=== PATIENT | female | born 1985 | race African-American/Black ===

== ENCOUNTER 2021-10-20 11:53 | Emergency (ER) | payer OTHER, SELFPAY ==
[2021-10-20 12:10] VITALS: BP 143/99; PULSE 82; RESP 16; TEMP 36.2; O2SAT 100
--- NOTE | 2021-10-20 12:33 | ED.BACK ---
HPI - Back Pain/Injury General Chief Complaint: Back Pain/Injury Stated Complaint: lower back pain Time Seen by Provider: 10/20/21 12:33 Source: patient Mode of arrival: ambulatory Limitations: no limitations History of Present Illness HPI Narrative: Nadia Monroy is a 36 yo female with no PMH 1 month who comes to [facility] with complaints of left lower back pain that is positional she says she was cleaning up at her dog yesterday and started feeling pain when she reached over, she said it hurts for the set down likely that toilet, and hurts when she walks. Is having no problems controlling her bowels or bladder. Discussed the pros and cons of having an x-ray for this kind of one-time injury and we are going to defer x-ray at this moment Related Data Allergies Allergy/AdvReac Type Severity Reaction Status Date / Time No Known Allergies Allergy Unverified 09/08/13 14:56 Review of Systems Review of Systems: CONSTITUTIONAL: Denies fever, chills, sweats. EYES: Denies visual changes, redness, discharge. ENT: Denies rhinorrhea, congestion, sore throat, otalgia. CARDIOVASCULAR: Denies chest pain, palpitations, edema. RESPIRATORY: Denies dyspnea, wheezing, cough GASTROINTESTINAL: Denies abdominal pain, nausea, vomiting, diarrhea. GENITOURINARY: Denies dysuria, hematuria, abnormal discharge SKIN: Denies rash or itching. NEUROLOGIC: Denies numbness, or focal weakness. PSYCHIATRIC: Denies anxiety or depression. Lower left-sided back pain that radiates into the bilateral buttock on the left PMFSH Past Medical History Medical History No acute medical problems Social History Social History (Updated 10/20/21 @ 12:40 by Jordana Severino CNP) Smoking status: Never smoker Alcohol intake: current Comments At time of signature, I agree with nursing past medical, surgical, social and family history. There is no relevant family history pertinent to the presenting complaint. Blood pressure elevated today at visit because of pain Exam Narrative: GENERAL: This is a well-nourished, well-developed patient, in moderate distress. HEAD: normocephalic, atraumatic. EYES: Sclera clear/white. Vision is grossly intact. EARS: External ears normal. Hearing grossly intact. NOSE: External nose normal without nasal discharge, nares without redness, no rhinorrhea. THROAT: Mucous membranes moist, NECK: Neck supple, CARDIOVASCULAR: Regular rate and rhythm without murmurs, gallops, or rubs. RESPIRATORY: Clear to auscultation. Breath sounds equal bilaterally. No wheezes, rales, or rhonchi. GASTROINTESTINAL: Abdomen soft, non-tender, SKIN: warm, intact with no suspicious lesions or rash, good texture and turgor. NEURO: awake, alert, and oriented to person, place and time. There were no obvious focal neurologic abnormalities. Steady gait EXTREMITIES: Normal range of motion. BACK: tender without deformity, left upper lumbar down onto buttocks, get reproduced by moving to right Course Course Emergency Course: Patient comes with lower back pain that started yesterday and is gotten worse today in terms of being able to walk and sit down Treated for sciatica with baclofen and 800 mg ibuprofen Work excuse given Vital Signs Vital signs: Vital Signs Temperature 97.1 F L 10/20/21 12:10 Pulse Rate 82 10/20/21 12:10 Respiratory Rate 16 10/20/21 12:10 Blood Pressure 143/99 H 10/20/21 12:10 Pulse Oximetry 100 10/20/21 12:10 Temperature 97.1 F L 10/20/21 12:10 Pulse Rate 82 10/20/21 12:10 Respiratory Rate 16 10/20/21 12:10 Blood Pressure 143/99 H 10/20/21 12:10 Pulse Oximetry 100 10/20/21 12:10 MDM - Back Pain/Injury Differential Diagnosis Differential diagnosis: Likely lumbar radiculopathy, sciatica, strain of lumbar region and other Critical Care Time Critical Care Time Critical Care Time: No Discharge Plan Discharge Clinical Impression: Sciatica
== END 2021-10-20 12:53 | disposition home or self-care (01) ==
PROVIDERS: Emergency Provider Nurse Practitioner
DX: M54.32 Sciatica, left side (principal)
CPT/HCPCS: 99213; G0463

== ENCOUNTER 2024-03-07 14:28 | Outpatient (CLI) | payer OTHER, SELFPAY ==
--- NOTE | ~2024-03-07 | US_ITS ---
EXAMINATION: US OB <= 14 weeks fetus DATE: 03/07/2024 15:29 INDICATION: Early . Confirmation of viability. TECHNIQUE: Real-time transabdominal pelvic ultrasound was performed. COMPARISON: None. FINDINGS: The uterus measures 13.6 x 8.8 x 9.7 cm. There is an intrauterine gestational sac. The crown ru mp length measures 7.5 cm, which correlates with an estimated gestational age of 13 weeks and 4 day(s ) (+/-) 1 week(s) and 2 day(s). heart motion is identified measuring 153 beats per minute (bpm) by M-mode Doppler. The right ovary is not visualized. The left ovary measures 4.0 x 2.0 x 1.9 cm. Th ere is no free fluid in the pelvis. IMPRESSION: 1. Single living intrauterine gestation with estimated date of delivery of 09/08/2024. Reviewed, dictated and finalized at location E. IMPRESSION: 1. Single living intrauterine gestation with estimated date of delivery of .
== END 2024-03-07 14:29 | disposition home or self-care (01) ==
PROVIDERS: Visit Provider Advanced Practice Midwife
DX: O36.80X0 Pregnancy with inconclusive fetal viability, not applicable or unspecified (principal); Z3A.00 Weeks of gestation of pregnancy not specified
CPT/HCPCS: 76801

== ENCOUNTER 2024-07-02 10:15 | Outpatient (RCR) | payer OTHER, SELFPAY ==
[2024-07-02 12:03] LABS: Hematocrit 30.1 % (37.0-47.0); Hemoglobin 9.9 g/dL (12.0-15.0)
[2024-07-02 12:15] LABS: Glucose 1 Hour PP 50gm Dose 76 mg/dL
[2024-07-02 12:53] LABS: Vitamin D 25 Hydroxy 53.7 ng/mL
[2024-07-02 12:55] LABS: HIV 1/2 Ab P24 Ag Result Negative (Negative)
[2024-07-02 14:33] LABS: Rapid Plasma Reagin Non-Reactive (NonReactive)
[2024-07-03] MEDS: RHO(D) IMMUNE GLOBULIN 300 MCG/2 ML SYRINGE IM (11:18)
== END 2024-09-30 23:59 | disposition home or self-care (01) ==
LOC: ANHLAB 10:15
PROVIDERS: PCP Student in an Organized Health Care Education/Training Program; Visit Provider Obstetrics & Gynecology Gynecology
DX: Z34.03 Encounter for supervision of normal first pregnancy, third trimester (principal); Z29.13 Encounter for prophylactic Rho(D) immune globulin
CPT/HCPCS: 36415; 82306; 82947; 85014; 85018; 85461; 86592; 86703; 86850; 86900; 86901; 90384; 96372; G0432; J2790

== ENCOUNTER 2024-08-20 11:14 | Outpatient (RCR) | payer OTHER, SELFPAY ==
[2024-07-25 09:45] VITALS: BP 107/65; PULSE 82
[2024-08-16 16:43] VITALS: BP 124/81; PULSE 71
--- NOTE | ~2024-08-20 | US_ITS ---
EXAMINATION: US OB limited w BPP DATE: 08/20/2024 12:44 INDICATION: decelerations TECHNIQUE: Real-time pelvic ultrasound was performed. The interpreting radiologist was not present fo r the study. COMPARISON: None. FINDINGS: There is a single living fetus in vertex presentation. The placenta is posterior. cardiac acti vity and movement are demonstrated. heart rate is 140 beats per minute (bpm). RACHANA is norm al measuring 12.9 cm. Biophysical profile performed by the technologist: breathing (30 sec sustained breathing in 30 minutes): 2 out of 2 movement (3 gross body movements in 30 minutes): 2 out of 2 tone (one episode of tzgtbhw-hqbvdnufx-fserzur limb movement): 2 out of 2 Amniotic fluid pocket (2 cm): 2 out of 2 Total score: 8 out of 8 IMPRESSION: 1. Single living intrauterine in vertex presentation with heart rate of 140 bpm. 2. Normal placenta. 3. Biophysical profile 8 out of 8. Reviewed, dictated and finalized at location B.
--- NOTE | 2024-08-20 12:16 | PC.NURSE ---
Dr Sung notified of prolong decel when monitor was applied and that tracing is justing meeting 15x15 accels. Orders received.
[2024-08-20 12:46] VITALS: BP 114/72; PULSE 75
--- NOTE | 2024-08-20 12:46 | PC.NURSE ---
Dr Sung notified of BPP and RACHANA results. Ok to sd home.
== END 2024-09-26 09:43 | disposition home or self-care (01) ==
LOC: ANHOBOP 11:14
PROVIDERS: PCP Student in an Organized Health Care Education/Training Program; Visit Provider Obstetrics & Gynecology Gynecology
DX: O13.9 Gestational [pregnancy-induced] hypertension without significant proteinuria, unspecified trimester (principal)
CPT/HCPCS: 59025; 76815; 76819

== ENCOUNTER 2024-09-01 23:02 | Inpatient (IN) | payer OTHER, SELFPAY ==
[2024-09-02] VITALS (181 sets, daily range): BP systolic 96–165; BP diastolic 60–128; PULSE 64–153; RESP 16; TEMP 36.4–37.2; O2SAT 87–100; BMI 23.6
[2024-09-02] MEDS: LABETALOL HCL 100 MG TABLET PO (01:08)
[2024-09-02 01:19] LABS: Basophils Percent Auto 0.2 % (0.2-1.2); Eosinophils Absolute Auto 0.1 K/mm3 (0-0.3); Eosinophils Percent Auto 0.8 % (0-4.4); Hematocrit 34.2 % (37.0-47.0); Hemoglobin 11.8 g/dL (12.0-15.0); Immature Granulocyte Absolute 0.07 K/mm3 (0.00-0.031); Immature Granulocyte Percent A 0.7 % (0-0.5); Lymphocytes Absolute Auto 1.74 K/mm3 (0.9-3.2); Lymphocytes Percent Auto 18.3 % (18.3-44.2); Mean Corpuscular HGB Conc 34.5 g/dl (32-36); Mean Corpuscular Hemoglobin 33.3 pg (26-34); Mean Corpuscular Volume 96.6 fl (80-100); Mean Platelet Volume 11.5 fl (7.4-10.4); Monocytes Absolute Auto 0.7 K/mm3 (0.1-0.6); Monocytes Percent Auto 7.1 % (2.6-8.5); Neutrophils Absolute Auto 6.9 K/mm3 (1.3-6.7); Neutrophils Percent Auto 72.9 % (45.5-73.1); Platelet Count Result 171 k/mm3 (150-375); Red Blood Count 3.54 M/mm3 (4.2-5.4); Red Cell Distribution Width 15.4 % (11.5-14.5); White Blood Count 9.5 K/mm3 (4.5-10.0)
[2024-09-02 01:38] LABS: Rapid Plasma Reagin Non-Reactive (NonReactive)
[2024-09-02 02:09] LABS: HIV 1/2 Ab P24 Ag Result Negative (Negative)
[2024-09-02] MEDS: LACTATED RINGERS 1,000 ML 75 ML IV CONT ×3 (02:13→13:04)
[2024-09-02] MEDS: fentaNYL CITRATE INJ (*CRX) 100 MCG/2 ML VIAL 50 MCG IV PUSH (03:08)
--- NOTE | 2024-09-02 03:39 | LDADM ---
This patient, Nadia Monroy, was admitted to Labor/Delivery/Recovery 103 on 09/01/24 at 23:02. Plans for labor, pain management and were discussed with patient. Patient/family oriented to hospital policies and general routines including ID bracelet, bed and alarms, visiting hours, pain management, procedures, bathroom and other care routines, personal items, smoking policy, room service/diet and guest tray routines, infant security routines, and visiting hours. Patient/Family are encouraged to report perceived risks to care and to ask questions if they do not understand what they are told or what they should do. See OBIX for further documentation.
--- NOTE | 2024-09-02 05:07 | WPDANESEPP ---
Anes - Eval Pre Procedure Procedure: Labor Epidural Date/Time: 09/02/24 05:07 Surgeon: Pineda Preop Diagnosis: Labor Pain Pre Op Diagnosis: Contractions Patient Data Age: 39 Gender: F Height: 1.7 m Weight: 68.4 kg Last Vital Signs Pulse 77 09/02/24 05:01 BP 128/75 09/02/24 05:01 Pulse Ox 92 09/02/24 05:03 O2 Del Method Room Air 09/02/24 02:04 Allergies Allergy/AdvReac Type Severity Reaction Status Date / Time No Known Allergies Allergy Verified 08/16/24 14:30 Home Medications Medication Instructions Recorded Confirmed Type labetalol 100 mg tablet 100 mg PO DAILY 07/25/24 08/16/24 History aspirin 81 mg tablet 81 mg PO DAILY 08/16/24 08/16/24 History ferrous sulfate 325 mg (65 mg 325 mg PO DAILY 08/16/24 08/16/24 History iron) tablet vits no.126-ferrous fum 1 tablet PO DAILY 08/16/24 08/16/24 History 28 mg iron-folic acid 800 mcg tablet (Classic ) Laboratory Tests 09/02/24 01:10 WBC 9.5 K/mm3 (4.5-10.0) RBC 3.54 L M/mm3 (4.2-5.4) Hgb 11.8 L g/dL (12.0-15.0) Hct 34.2 L % (37.0-47.0) MCV 96.6 fl (80-100) MCH 33.3 pg (26-34) MCHC 34.5 g/dl (32-36) RDW 15.4 H % (11.5-14.5) Plt Count 171 k/mm3 (150-375) MPV 11.5 H fl (7.4-10.4) Immature Gran % (Auto) 0.7 H % (0-0.5) Neut % (Auto) 72.9 % (45.5-73.1) Lymph % (Auto) 18.3 % (18.3-44.2) [place] % (Auto) 7.1 % (2.6-8.5) Eos % (Auto) 0.8 % (0-4.4) Baso % (Auto) 0.2 % (0.2-1.2) Lymph # (Auto) 1.74 K/mm3 (0.9-3.2) [place] # (Auto) 0.7 H K/mm3 (0.1-0.6) Eos # (Auto) 0.1 K/mm3 (0-0.3) Baso # (Auto) 0.0 K/mm3 (0.0-0.1) Abs Immat Gran (auto) 0.07 H K/mm3 (0.00-0.031) Absolute Neuts (auto) 6.9 H K/mm3 (1.3-6.7) Absolute Nucleated RBC 0.000 K/mm3 (0.0-0.012) Nucleated RBC % 0.0 % (0.0-0.2) RPR Non-reactive (NonReactive) HIV 1&2 Ab/P24 Ag 4thGn Negative (Negative) Blood Type A Negative Antibody Screen Negative : gestational age (. JENNIFFER 09/10/24) Patient hx anesthesia problems: none Family hx anesthesia problems: none Results Review: All pre-operative results and documents have been reviewed as part of the pre-operative evaluation. [facility] [place] Past Medical History Medical History No acute medical problems Family History Family History Mother Lupus Hypertension Father Hypertension Grandparent Ovarian cancer Social History Social History Smoking status: Never smoker Alcohol intake: current Substance use: never Do You Feel Safe in your Home?: Yes Lack of Transportation: No Lack of Food: Never True Current Housing: I Have Housing Concerned About Future Housing: No Difficulty Paying Gas/Electric Bills: No Difficulty Paying for Meds: No Currently Unemployed: No Education: Bachelor's Degree Difficulty w/ Childcare or Family Care: No Spiritual care concerns: No Exam Day of Procedure 09/02/24 05:07 Patient weight: normal Heart: regular rate and rhythm Lungs: normal air movement Airway: Mallampati scale class II Neurological: alert and oriented
[2024-09-02] MEDS: AMPICILLIN 2 GM/NS 100 ML 2 GM/100 ML BAG IVPB (07:26)
[2024-09-02] MEDS: OXYTOCIN 30 UNITS/NS 500 ML 30 UNITS/500 ML BAG 6 UNITS IV CONT (07:28)
--- NOTE | 2024-09-02 09:56 | WPDOBADMIT ---
Obstetrics - Admit Note Admission Note: record reviewed. No pertinent additions to the history and/or any subsequent changes in the physical findings that are not consistent with the expected course of the were found. Additions to the history and/or subsequent changes in the physical findings follow. Here in early labor. Cervix 1/90/-2 on admit. Changed to 3 cm by this am but contractions spaced out after epidural. Augmented with pitocin. Now 8/90/0. AROM with clear fluid. FHTs with episode of prolonged deceleration resolved with position changes. Now Cat I. Continue expectant management. CHTN on Labetalol. BP's overnight in severe range so extra dose labetalol 100 mg given. BP now in normal range. .
[2024-09-02] MEDS: AMPICILLIN 1 GM/NS 50 ML 1 GM/50 ML BAG IVPB (11:12)
--- NOTE | 2024-09-02 14:12 | PM.OBPRVD ---
OB - Vaginal Delivery Note Procedure Delivery date: 09/02/24 Events: Chronic Hypertension Induction method: None Delivery augmentation: Rupture of Membranes and Pitocin Delivery monitor: External FHT and Internal Uterine Route of delivery: Episiotomy description: None Laceration Description: Periurethral (right) and Perineal - 1st Degree Delivery repair: vicryl (3-0) Specimen: Yes (placenta small with marginal insertion) Quantitative Blood Loss (ml): 250 Anesthesia type: Epidural Disposition: Floor Complications: No immediate complications [place] Baby Date of : 09/02/24 Gestational Age by Date: 39 Infant gender: Female Weight (pounds): 5 Weight (ounces): 15 presentation: vertex position: Right Occiput Anterior Placenta delivery description: Spontaneous and Abnormal Configuration (marginal insertion) Cord Vessel Description: 3 Vessels and Delayed Cord Clamping score one minute: 8 score five minutes: 9
--- NOTE | 2024-09-02 14:14 | PM.OBDSVD ---
DS: Admitting Diagnosis Discharge Date 09/04/2024 <Rolando Rahman MD - Last Filed: 09/04/24 07:02> Admitting Diagnosis IUP 39 wks with early labor CHTN <Carmen Sung MD - Last Filed: 09/05/24 08:01> DS: Discharge Diagnosis Discharge Diagnosis (1) (normal spontaneous vaginal delivery): Code(s): O80 - Encounter for full-term uncomplicated delivery <Carmen Sung MD - Last Filed: 09/05/24 08:01> Status: Acute <Carmen Sung MD - Last Filed: 09/05/24 08:01> (2) Chronic hypertension affecting : Code(s): O10.919 - Unspecified pre-existing hypertension complicating , unspecified trimester <Carmen Sung MD - Last Filed: 09/05/24 08:01> Status: Acute <Carmen Sung MD - Last Filed: 09/05/24 08:01> OB - DS: Summary Hospital Course Hospital Course: Patient underwent spontaneous vaginal delivery on 09/02/2024. hospital course unremarkable. Her blood pressure remained stable on labetalol she was up, voiding without difficulty, eating regular diet, ambulating, and generally without complaints. <Carmen Sung MD - Last Filed: 09/05/24 08:01> OB Procedures : NST and Ultrasound <Carmen Sung MD - Last Filed: 09/05/24 08:01> OB Procedures Intrapartum: Spontaneous Vag Delivery <Carmen Sung MD - Last Filed: 09/05/24 08:01> OB Procedures: : None <Carmen Sung MD - Last Filed: 09/05/24 08:01> Peripartum Data Infant Delivery Method: Natural Vaginal <Carmen Sung MD - Last Filed: 09/05/24 08:01> Laceration Description: Periurethral (right) and Perineal - 1st Degree <Carmen Sung MD - Last Filed: 09/05/24 08:01> Episiotomy description: None <Carmen Sung MD - Last Filed: 09/05/24 08:01> complications: none <Carmen Sung MD - Last Filed: 09/05/24 08:01> Status at Discharge Functional status at discharge: independent ambulation <Carmen Sung MD - Last Filed: 09/05/24 08:01> Overall status at discharge: patient is progressing back to baseline <Carmen Sung MD - Last Filed: 09/05/24 08:01> Time Spent with Patient Time attestation: Total time spent providing and/or coordinating discharge services: <Carmen Sung MD - Last Filed: 09/05/24 08:01> Exam Const: General: cooperative, healthy appearing and comfortable <Rolando Rahman MD - Last Filed: 09/04/24 07:02> Nutritional Appearance: average body habitus <Rolando Rahman MD - Last Filed: 09/04/24 07:02> Orientation/consciousness: oriented to person, oriented to place and oriented to time <Rolando Rahman MD - Last Filed: 09/04/24 07:02> Resp: Effort & Inspection: normal respiratory effort <Rolando Rahman MD - Last Filed: 09/04/24 07:02> Cardio: Rate: regular rate <Rolando Rahman MD - Last Filed: 09/04/24 07:02> Rhythm: regular rhythm <Rolando Rahman MD - Last Filed: 09/04/24 07:02> Heart sounds: S1 normal heart sound present and S2 normal heart sound present <Rolando Rahman MD - Last Filed: 09/04/24 07:02> GI: Inspection: normal to inspection <Rolando Rahman MD - Last Filed: 09/04/24 07:02> DS: Data Data Completed and Pending Pending studies at discharge: Pending at discharge 09/02/24 14:03 Surgical [PTH] Routine <Carmen Sung MD - Last Filed: 09/05/24 08:01> Labs on day of discharge: Labs from last 24 hours 09/02/24 01:10 WBC 9.5 RBC 3.54 L Hgb 11.8 L Hct 34.2 L MCV 96.6 MCH 33.3 MCHC 34.5 RDW 15.4 H Plt Count 171 MPV 11.5 H Immature Gran % (Auto) 0.7 H Neut % (Auto) 72.9 Lymph % (Auto) 18.3 [place] % (Auto) 7.1 Eos % (Auto) 0.8 Baso % (Auto) 0.2 Lymph # (Auto) 1.74 [place] # (Auto) 0.7 H Eos # (Auto) 0.1 Baso # (Auto) 0.0 Abs Immat Gran (auto) 0.07 H Absolute Neuts (auto) 6.9 H Absolute Nucleated RBC 0.000 Nucleated RBC % 0.0 RPR Non-reactive HIV 1&2 Ab/P24 Ag 4thGn Negative Blood Type A Negative Antibody Screen Negative <Carmen Sung MD - Last Filed: 09/05/24 08:01> Discharge Plan Discharge Attending physician on discharge: Carmen Sung <Carmen Sung MD - Last Filed: 09/05/24 08:01> Carmen Sung <Rolando Rahman MD - Last Filed: 09/04/24 07:02> Discharging Clinician: Rolando Morse <Carmen Sung MD - Last Filed: 09/05/24 08:01> Rolando Morse <Rolando Rahman MD - Last Filed: 09/04/24 07:02> Anticipated Discharge Date/Time: 09/03/24 14:15 <Carmen Sung MD - Last Filed: 09/05/24 08:01> Patient Disposition: Home, Self-Care <Carmen Sung MD - Last Filed: 09/05/24 08:01> Activity: may shower and pelvic rest <Carmen Sung MD - Last Filed: 09/05/24 08:01> may shower and pelvic rest <Rolando Rahman MD - Last Filed: 09/04/24 07:02> Diet: regular <Carmen Sung MD - Last Filed: 09/05/24 08:01> regular <Rolando Rahman MD - Last Filed: 09/04/24 07:02> Discharge Instructions: Education: Mom and Baby Guide Given to: Mother Follow-Up: Call your delivering provider's office for an appointment to be seen in: follow up 1 week and 6 weeks Mom and baby should come to the [facility] for the follow-up appointment. Appointment Date/Time: Thursday, September 05, 2024 at 9:00 am What to expect at your follow-up visit: Blood Pressure Check Physical Assessment Call [phone] if you are unable to keep your appointment time. BREAST CARE: * Wear a snug supportive bra. * For engorgement discomfort: Breast Feeding: * Apply warm moist washcloths * Express milk as needed to relieve engorgement * Wear loose clothing Bottle Feeding: * May apply ice packs * For sore nipples: * Identify correct latch-on * Apply warm moist washcloths before and after nursing * Air dry nipples after nursing * May apply Lansinoh cream to nipples EPISIOTOMY/PERINEAL CARE: * Until bleeding stops, use your kaleigh bottle after urinating * Change your pad frequently throughout the day * You may take sitz baths several times a day (fill your bathtub with warm water and soak for 20 minutes.) Do NOT bathe in the water * No tub baths until seen by your physician - You may shower ACTIVITY: * Rest as much as possible. * Do not exercise or lift anything heavier than your baby (such as laundry or other children.) * Avoid stairs or driving as much as possible. * Do not put anything into the vagina. No douching, tampons, or sexual activity until seen by physician. NOTIFY PHYSICIAN IF YOU HAVE ANY QUESTIONS OR IF ANY OF THE FOLLOWING SYMPTOMS OCCUR: * If your perineum becomes red, swollen, or more painful than what you have experienced in the hospital. * If your vaginal bleeding becomes foul smelling. * If your vaginal bleeding becomes more heavy than a period or if your bleeding changes from pink to bright red. However, you may pass an occasional walnut-sized clot once or twice for the first week . * If you experience a sharp, shooting pain in you calves. * If you discover a hard, reddened area on your breast or if you experience flu-like symptoms. DIET: * Eat regular, well-balanced meals. * Drink plenty of fluids daily. If , drink to thirst. <Carmen Sung MD - Last Filed: 09/05/24 08:01> Stand Alone Forms: General Discharge Information <Carmen Sung MD - Last Filed: 09/05/24 08:01> Follow-up/Referrals: Carmen Sung MD [Physician] - 1 Week (and 6 wk) <Carmen Sung MD - Last Filed: 09/05/24 08:01> Discharge Medications: Continued labetalol 100 mg Tablet 100 mg PO DAILY Classic 28 mg iron- 800 mcg Tablet 1 tablet PO DAILY ferrous sulfate 325 mg (65 mg iron) Tablet 325 mg PO DAILY Discontinued Adult Aspirin 81 mg Tablet 81 mg PO DAILY <Carmen Sung MD - Last Filed: 09/05/24 08:01> Date of admission: 09/01/24 23:02 <Carmen Sung MD - Last Filed: 09/05/24 08:01> Primary Care Provider: Vanesa,Rafael <Carmen Sung MD - Last Filed: 09/05/24 08:01> Admitting Provider: Carmen Sung <Carmen Sung MD - Last Filed: 09/05/24 08:01> Attending physician on admission: Carmen Sung <Carmen Sung MD - Last Filed: 09/05/24 08:01> Condition: Stable <Carmen Sung MD - Last Filed: 09/05/24 08:01>
[2024-09-02] MEDS: OXYTOCIN 30 UNITS/NS 500 ML 30 UNITS/500 ML BAG 125 UNITS IV CONT (14:16)
--- NOTE | 2024-09-02 15:20 | PC.NURSE ---
Consulted with patient to assess needs related to . Encouraged understanding the benefits of skin to skin, responding to feeding cues, frequencies of feeding 8-12 times in 24 hours (approximately 2-3 hours), duration of feedings, milk production, intake/output feeding sheet and signs of adequate intake encouraging swallowing at the breast. Reviewed positioning and alignment, supporting breast, off-centered (asymmetrical latch) and leading with the chin with big, open, wide gape. latched optimally to the [left] breast in [cradle] position. Education given to the mother of how to visualize the suckling (with good rocking jaw motion). The was [able] to maintain latch without discomfort to mother. Nipple care reviewed with optimal latch and waiting for baby to have a big open mouth. Mother voiced understanding of the education shared, to call for assistance if the infant does not latch or if there is discomfort with . Reported to the Primary RN.
[2024-09-02] MEDS: WITCH HAZEL 40 PADS 1 PAD TOPICAL (16:48)
[2024-09-02] MEDS: ACETAMINOPHEN 325 MG TABLET 650 MG PO (16:48)
[2024-09-02] MEDS: BENZOCAINE 20% AER SPR (*SP) 56 GM CAN 1 SPRAY TOPICAL (16:48)
[2024-09-02] MEDS: IBUPROFEN 600 MG TABLET PO (16:49)
--- NOTE | 2024-09-02 17:27 | PC.NURSE ---
Patient transferred to post room #286 via wheelchair. Support person present. Oriented to unit, room, information board, rooming in, admission packet and security measures. Patient verbalizes understanding.
--- NOTE | 2024-09-02 17:36 | PC.NURSE ---
2577 epidural removed from pt back. pt up to bathroom no issues ambulating. urinated, cleaned, and pads changed. transported up stairs with PP nurse, significant other, and baby. no issues/complaints.
[2024-09-03 05:30] VITALS: BP 140/86; PULSE 62; RESP 16; TEMP 36.9; O2SAT 98
--- NOTE | 2024-09-03 06:53 | WPDANLDPN2 ---
Anes-Prog Note L&D Date/Time: 09/03/24 06:53 Comfortable throughout: labor and delivery Neuraxial method: epidural Epidural/Spinal procedure site: clean & non-tender Neuro status: Neuro function grossly intact. Cardiovascular status: normal Respiratory status: normal Airway patency: baseline Mental status: baseline Post-Op hydration status: normal Vital Signs: Last Vital Signs Temp 36.9 C 09/03/24 05:30 Pulse 62 09/03/24 05:30 Resp 16 09/03/24 05:30 BP 140/86 09/03/24 05:30 Pulse Ox 98 09/03/24 05:30 O2 Del Method Room Air 09/02/24 20:48 Pain score (VAS): 1 I/O: Intake & Output 09/02/24 09/02/24 09/03/24 15:59 23:59 07:59 Intake Total 1500 Output Total 1000 Balance 500 Post-procedural complaints: none Patient feedback: Patient satisfied with anesthetic care.
[2024-09-03 07:53] LABS: Hematocrit 34.4 % (37.0-47.0); Hemoglobin 11.5 g/dL (12.0-15.0)
[2024-09-03 08:00] VITALS: BP 139/83; PULSE 63; RESP 16; TEMP 36.7; O2SAT 100
--- NOTE | 2024-09-03 08:01 | PM.OBPNVD ---
OB - PN: Subj Subjective Date/time seen: 09/03/24 08:01 Patient comments: no complaints and pain well controlled baby status: doing well and nursing well OB - PN: Obj Data Labs 09/03/24 07:26 Labs: Laboratory Results - last 24 hr 09/03/24 09/03/24 05:11 07:26 Hgb 11.5 L Hct 34.4 L Blood Type A Negative Antibody Screen Negative OB - PN A/P Plan day: 1 Plan: routine care Time Spent With Patient Time: Total time spent is greater than 50% in coordination of care (as documented) at patient's floor/unit and/or counseling patient: Time with patient: less than 15 minutes Exam Const: General: cooperative, healthy appearing and comfortable Nutritional Appearance: average body habitus Orientation/consciousness: oriented to person, oriented to place and oriented to time Resp: Effort & Inspection: normal respiratory effort GI: Inspection: normal to inspection
[2024-09-03 09:35] VITALS: PULSE 72
[2024-09-03] MEDS: DIBUCAINE 1% OINTMENT 30 GM TUBE 1 APPLIC TOPICAL (09:35)
[2024-09-03] MEDS: LABETALOL HCL 100 MG TABLET PO (09:35)
[2024-09-03] MEDS: MULTIVIT/MIN/PREN/FOL AC/IRON TABLET 1 TAB PO (09:35)
[2024-09-03] MEDS: DOCUSATE SODIUM 100 MG CAPSULE PO (09:35)
[2024-09-03] MEDS: IBUPROFEN 600 MG TABLET PO (09:47)
[2024-09-03] MEDS: ACETAMINOPHEN 325 MG TABLET 650 MG PO (09:47)
[2024-09-03] MEDS: RHO(D) IMMUNE GLOBULIN 300 MCG/2 ML SYRINGE IM (15:46)
[2024-09-03 20:12] VITALS: BP 140/88; PULSE 71; RESP 16; TEMP 37; O2SAT 100
[2024-09-04] MEDS: ACETAMINOPHEN 325 MG TABLET 650 MG PO ×2 (03:26→09:57)
[2024-09-04] MEDS: IBUPROFEN 600 MG TABLET PO ×2 (03:36→09:57)
--- NOTE | 2024-09-04 07:02 | P.PNOB_ITS ---
OB - PN: Subj Subjective Date/time seen: 09/04/24 07:02 Patient comments: no complaints and pain well controlled baby status: doing well and nursing well OB - PN: Obj Data Labs 09/03/24 07:26 Labs: Laboratory Results - last 24 hr 09/03/24 09/03/24 05:11 07:26 Hgb 11.5 L Hct 34.4 L Blood Type A Negative Antibody Screen Negative Screen Negative Baby's Blood Type A pos Baby's TAYLER Positive Doses of RhIg Required 1 OB - PN A/P Plan day: 2 Plan: routine care, discharge home and follow up 6 weeks Time Spent With Patient Time: Total time spent is greater than 50% in coordination of care (as documented) at patient's floor/unit and/or counseling patient: Time with patient: less than 15 minutes Exam Const: General: cooperative, healthy appearing and comfortable Nutritional Appearance: average body habitus Orientation/consciousness: oriented to person, oriented to place and oriented to time Resp: Effort & Inspection: normal respiratory effort Cardio: Rate: regular rate Rhythm: regular rhythm Heart sounds: S1 sudha l heart sound present and S2 normal heart sound present GI: Inspection: normal to inspection
[2024-09-04 07:47] VITALS: BP 150/89; PULSE 65; RESP 18; TEMP 36.5; O2SAT 100
[2024-09-04 08:00] VITALS: PULSE 65; RESP 18; O2SAT 100
[2024-09-04 09:57] VITALS: PULSE 65
[2024-09-04] MEDS: LABETALOL HCL 100 MG TABLET PO (09:57)
[2024-09-04] MEDS: MULTIVIT/MIN/PREN/FOL AC/IRON TABLET 1 TAB PO (09:57)
[2024-09-04] MEDS: DOCUSATE SODIUM 100 MG CAPSULE PO (09:57)
[2024-09-04] MEDS: MEASLES,MUMPS,RUBELLA VACCINE 0.5 ML VIAL SUB-Q (14:32)
--- NOTE | 2024-09-04 16:01 | PC.NURSE ---
Patient viewed the discharge video Mother & Baby Care, The First Two Weeks . Patient was given the opportunity and encouraged to ask questions. Patient verbalized understanding of information shared and has been given the mother/baby guide for home reference.
[2024-09-05 09:50] VITALS: BP 138/82; PULSE 71; RESP 20; TEMP 36.7; O2SAT 100
== END 2024-09-04 15:47 | disposition home or self-care (01) | DRG 807 ==
LOC: ANHLDR 09-02 14:16 → ANHOB2 09-04 07:21 → ANHLDR 09-06 07:08 → ANHOB2 09-06 07:08
PROVIDERS: Admitting Provider Obstetrics & Gynecology Gynecology; PCP Student in an Organized Health Care Education/Training Program; Visit Provider Obstetrics & Gynecology
DX: O10.92 Unspecified pre-existing hypertension complicating childbirth (principal); Z37.0 Single live birth; Z3A.38 38 weeks gestation of pregnancy; O99.824 Streptococcus B carrier state complicating childbirth; O70.0 First degree perineal laceration during delivery; O71.82 Other specified trauma to perineum and vulva; O36.8330 Maternal care for abnormalities of the fetal heart rate or rhythm, third trimester, not applicable or unspecified; O43.193 Other malformation of placenta, third trimester
CPT/HCPCS: 36415; 85014; 85018; 85025; 85461; 86592; 86703; 86850; 86900; 86901; 88307; 90384; 90710; A9270; G0432; J0290; J2590; J2790; J2795; J3010; J7120